=== PATIENT | male | born 2000 | race Caucasian/White ===

== ENCOUNTER 2020-02-24 22:57 | Emergency (ER) | payer OTHER ==
[~2020-02-24] VITALS: Ht 190.5 cm; Wt 84.1 kg
[2020-02-24 23:06] VITALS: BP 129/78; TEMP 99.4
[2020-02-24] MEDS ORDERED: DOXYCYCLINE HY100 MG PO (23:52)
[2020-02-25] VITALS: PULSE 90
== END 2020-02-25 | disposition home or self-care (01) ==
LOC: COL.ER 22:57
DX: L02.214 Cutaneous abscess of groin (principal)